=== PATIENT | male | born 1960 | race Caucasian/White ===

== ENCOUNTER 2024-04-17 17:29 | Emergency (ER) | payer BC ==
[~2024-04-17] VITALS: Ht 177.8 cm; Wt 74.0 kg
[2024-04-17 17:30] VITALS: BP 148/91; PULSE 87; RESP 16; O2SAT 98
[2024-04-17 19:02] VITALS: TEMP 97.4
== END 2024-04-17 19:08 | disposition home or self-care (01) ==
LOC: ER 17:30
DX: M71.22 Synovial cyst of popliteal space [Baker], left knee (principal)
CPT/HCPCS: 93971; 99284